=== PATIENT | female | born 1950 | race Two or more races ===

== ENCOUNTER 2019-01-27 10:04 | Outpatient (CLI) | payer OTHER | END 2019-01-27 10:06 | disposition home or self-care (01) | LOC: SONOGRAMA 10:04 | DX: E04.2 Nontoxic multinodular goiter (principal) ==

== ENCOUNTER 2019-08-25 09:50 | Outpatient (CLI) | payer OTHER | END 2019-08-25 12:14 | disposition home or self-care (01) | LOC: SONOGRAMA 09:50 | DX: E04.1 Nontoxic single thyroid nodule (principal) ==